=== PATIENT | male | born 1985 | race African-American/Black ===

== ENCOUNTER 2017-06-18 09:33 | Emergency (ER) | payer SELFPAY ==
[~2017-06-18] VITALS: Ht 188 cm; Wt 172.0 kg
[2017-06-18 10:14] VITALS: BP 119/78
[2017-06-18] MEDS ORDERED: LIDOCAINE HCL 1% 20ML VIAL (Pyxis) INJ INFIL ONE (11:00)
[2017-06-18] MEDS ORDERED: CEFTRIAXONE SODIUM 250 MG/VIAL IM ONE (11:00)
[2017-06-18] MEDS ORDERED: AZITHROMYCIN 500 MG TABLET PO ONE (11:00)
== END 2017-06-18 11:16 | disposition home or self-care (01) ==
LOC: ER 09:33
DX: N48.9 Disorder of penis, unspecified (principal); E66.9 Obesity, unspecified; F17.200 Nicotine dependence, unspecified, uncomplicated
CPT/HCPCS: 96372; 99283; J0696; J3490

== ENCOUNTER 2017-08-06 15:13 | Emergency (ER) | payer SELFPAY ==
[~2017-08-06] VITALS: Ht 188 cm; Wt 150.0 kg
[2017-08-06 15:45] VITALS: BP 145/85
[2017-08-07] MEDS ORDERED: SUCCINYLCHOLINE CHLORIDE 200MG/10ML VIAL IV ONE (13:19)
[2017-08-07] MEDS ORDERED: LIDOCAINE HCL/PF 1% 10 MG/ML 5ML VIAL ONE (13:20)
[2017-08-07] MEDS ORDERED: MIDAZOLAM HCL 2 MG/2 ML VIAL ONE (13:20)
[2017-08-07] MEDS ORDERED: PROPOFOL 200MG/20ML VIAL IV ONE ×2 (13:20→13:22)
[2017-08-07] MEDS ORDERED: FENTANYL CITRATE/PF 50MCG/ML 2ML VIAL ONE (13:20)
[2017-08-07] MEDS ORDERED: ROCURONIUM BROMIDE 10MG/ML VIAL 5ML IV ONE (13:22)
== END 2017-08-07 01:31 | disposition left against medical advice (07) ==
LOC: ER 16:22
DX: Z53.21 Procedure and treatment not carried out due to patient leaving prior to being seen by health care provider (principal)
CPT/HCPCS: J0330; J2250; J2704; J3010; J3490

== ENCOUNTER 2017-08-07 08:12 | Observation (INO) | payer SELFPAY ==
[~2017-08-07] VITALS: Ht 188 cm; Wt 150.6 kg
[2017-08-07] MEDS ORDERED: ONDANSETRON HCL 4MG/2ML VIAL IV STA (09:36)
[2017-08-07] MEDS ORDERED: MORPHINE SULFATE 4 MG/ML CPJ (NOT FOR IM USE) IV STA (09:36)
[2017-08-07 10:04] LABS: BASOPHILS % 0.3 % (0.0-2.0); EOSINOPHILS % 0.7 % (0.0-5.0); HEMATOCRIT. 42.8 % (42.0-52.0); HEMOGLOBIN. 14.7 g/dL (14.0-18.0); LYMPHOCYTES % 29.1 % (20.0-50.0); MEAN CORPUSCULAR HEMOGLOBIN 30.9 pg (28.0-32.0); MEAN CORPUSCULAR VOLUME 90.1 fL (80.0-94.0); MEAN PLATELET VOLUME 8.9 fl (7.4-10.4); MONOCYTES % 8.7 % (2.0-8.0); NEUTROPHILS % 61.2 % (40.0-76.0); PLATELET 184 x1000/uL (130-400); RED BLOOD CELL COUNT 4.75 mill/uL (4.7-6.1)
[2017-08-07 10:12] LABS: CHLORIDE 108 mEq/L (98-107)
[2017-08-07] MEDS ORDERED: PIPERACILLIN/TAZ 3.375G PREMIX 50 ML IV SCH ×2 (11:57→19:45)
[2017-08-07] MEDS ORDERED: MORPHINE SULFATE 4 MG/ML CPJ (NOT FOR IM USE) IV ONE (12:00)
[2017-08-07] MEDS ORDERED: ONDANSETRON HCL 4MG/2ML VIAL IV ONE (12:00)
[2017-08-07] MEDS ORDERED: PIPERACILLIN/TAZOBACTAM 3.375GM/50ML PREMIX IV ONE ×2 (12:00→19:45)
[2017-08-07] MEDS ORDERED: SODIUM CHLORIDE 0.9% 1,000 ML IV ONE (12:00)
[2017-08-07 13:05] LABS: CLARITY URINE CLEAR (CLEAR); COLOR URINE YELLOW (YELLOW); KETONES URINE NEGATIVE (NEGATIVE); LEUKOCYTE ESTERASE URINE NEGATIVE (NEGATIVE); NITRITE URINE NEGATIVE (NEGATIVE); OCCULT BLOOD URINE NEGATIVE (NEGATIVE); PROTEIN URINE NEGATIVE (NEGATIVE)
[2017-08-07] MEDS ORDERED: BUPIVACAINE HCL 0.5% (5MG/ML) 50ML ONE (13:27)
[2017-08-07 13:34] LABS: *AMPHETAMINES SCREEN URINE NEGATIVE (NEGATIVE); *BARBITURATES SCREEN URINE NEGATIVE (NEGATIVE); *BENZODIAZEPINES SCREEN URINE NEGATIVE (NEGATIVE); *COCAINE SCREEN URINE NEGATIVE (NEGATIVE); CANNABINOID URINE SCREEN PRESUMTIVE POSITIVE (NEGATIVE); METHADONE URINE SCREEN NEGATIVE (NEGATIVE); OPIATES URINE SCREEN PRESUMTIVE POSITIVE (NEGATIVE); PHENCYCLIDINE URINE SCREEN NEGATIVE (NEGATIVE)
[2017-08-07] MEDS ORDERED: IOHEXOL-300 100 ML BOTTLE ONE (14:00)
[2017-08-07] MEDS ORDERED: DIATR MEGLU/DIATRIZOATE SOLN 30ML ONE (14:01)
[2017-08-07] MEDS ORDERED: DIATR MEGLU/DIATRIZOATE SOLN 120ML ONE (14:01)
[2017-08-07] MEDS ORDERED: SKIN ADHESIVE 0.7 GM EA TOP ONE (18:12)
[2017-08-07] MEDS ORDERED: BUPIVACAINE HCL/PF 0.5% (5MG/ML) 10ML ONE (18:13)
[2017-08-07] MEDS ORDERED: ROCURONIUM BROMIDE 10MG/ML VIAL 5ML IV ONE (18:38)
[2017-08-07] MEDS ORDERED: LIDOCAINE HCL/PF 1% 10 MG/ML 5ML VIAL ONE (18:38)
[2017-08-07] MEDS ORDERED: PROPOFOL 200MG/20ML VIAL IV ONE (18:38)
[2017-08-07] MEDS ORDERED: SUCCINYLCHOLINE CHLORIDE 200MG/10ML VIAL IV ONE (18:42)
[2017-08-07] MEDS ORDERED: FENTANYL CITRATE/PF 50MCG/ML 2ML VIAL ONE (18:46)
[2017-08-07] MEDS ORDERED: MIDAZOLAM HCL 2 MG/2 ML VIAL ONE (18:47)
[2017-08-07] MEDS ORDERED: ESMOLOL HCL 10MG/ML 10ML VIAL IV ONE (18:51)
[2017-08-07] MEDS ORDERED: HYDROCODONE/ACETAMINOPHEN 5/325MG TABLET PO PRN ×2 (19:00)
[2017-08-07] MEDS ORDERED: MORPHINE SULFATE 4 MG/ML CPJ (NOT FOR IM USE) IV PRN ×2 (19:00→21:23)
[2017-08-07] MEDS ORDERED: ONDANSETRON HCL 4MG/2ML VIAL IV PRN (19:00)
[2017-08-07] MEDS ORDERED: DEXAMETHASONE 4MG/ML 1ML VIAL ONE (19:30)
[2017-08-07] MEDS ORDERED: GLYCOPYRROLATE 0.2 MG/ML 2ML VIAL ONE ×2 (19:45→20:31)
[2017-08-07] MEDS ORDERED: NEOSTIGMINE METHYLSULFATE 1MG/ML 10 ML VIAL ONE (19:45)
[2017-08-07] MEDS ORDERED: MORPHINE SULFATE 2 MG/ML CPJ (NOT FOR IM USE) IV PRN (20:00)
[2017-08-07] MEDS ORDERED: DEXT 5%/0.45% NACL KCL 20MEQ/L 1,000 ML IV SCH (21:00)
[2017-08-07] MEDS ORDERED: SODIUM CHLORIDE 0.9% INJ 3ML FLUSH IVF SCH (22:00)
[2017-08-07 22:23] VITALS: BP 118/77
[2017-08-07] MEDS: MORPHINE SULFATE 4 MG/ML CPJ (NOT FOR IM USE) IV PRN (23:13)
[2017-08-07] MEDS ORDERED: DEXT 5%/0.45% NACL 1000ML 1,000 ML IV SCH (23:15)
[2017-08-08] VITALS: BP 122/63
[2017-08-08 04:00] VITALS: BP 116/79
[2017-08-08] MEDS: MORPHINE SULFATE 4 MG/ML CPJ (NOT FOR IM USE) IV PRN (06:09)
[2017-08-08 08:00] VITALS: BP 118/74
[2017-08-08 12:18] VITALS: BP 118/74
== END 2017-08-08 12:45 | disposition home or self-care (01) ==
LOC: ER 08:46 → 6EST 11:57 → INTOOBSV 11:57 → ENRESERV 15:21 → ER 18:21 → CANBEDREQ 19:16
PROVIDERS: ADMIT Internal Medicine; ATTEND Internal Medicine
DX: K35.80 Unspecified acute appendicitis (principal); E66.01 Morbid (severe) obesity due to excess calories; F17.200 Nicotine dependence, unspecified, uncomplicated; Z83.3 Family history of diabetes mellitus
CPT/HCPCS: 36415; 44970; 74176; 74177; 80053; 80305; 81003; 83690; 85025; 87040; 88304; 93005; 96365; 96375; 96376; 99285; G0168; G0378; J0330; J1100; J2250; J2270; J2405; J2543; J2710; J3010; J3490; J7030; Q9967; J2704; Q9963

== ENCOUNTER 2017-08-18 08:49 | Emergency (ER) | payer SELFPAY ==
[~2017-08-18] VITALS: Ht 188 cm; Wt 173.0 kg
[2017-08-18] MEDS ORDERED: MORPHINE SULFATE 4 MG/ML CPJ (NOT FOR IM USE) IV STA (10:15)
[2017-08-18] MEDS ORDERED: ONDANSETRON HCL 4MG/2ML VIAL IV STA (10:15)
[2017-08-18 10:51] LABS: BASOPHILS % 0.6 % (0.0-2.0); EOSINOPHILS % 1.8 % (0.0-5.0); HEMATOCRIT. 41.5 % (42.0-52.0); MEAN CORPUSCULAR HEMOGLOBIN 30.5 pg (28.0-32.0); MEAN CORPUSCULAR VOLUME 90.2 fL (80.0-94.0); MEAN PLATELET VOLUME 8.5 fl (7.4-10.4); MONOCYTES % 6.4 % (2.0-8.0); NEUTROPHILS % 60.2 % (40.0-76.0); PLATELET 216 x1000/uL (130-400); RED BLOOD CELL COUNT 4.61 mill/uL (4.7-6.1); RED CELL DISTRIBUTION WIDTH 12.9 % (11.6-14.6)
[2017-08-18 10:54] LABS: CHLORIDE 107 mEq/L (98-107)
[2017-08-18 10:55] LABS: PROTHROMBIN TIME 10.5 sec (9.4-11.6)
[2017-08-18 11:10] LABS: CLARITY URINE CLEAR (CLEAR); COLOR URINE YELLOW (YELLOW); KETONES URINE NEGATIVE (NEGATIVE); LEUKOCYTE ESTERASE URINE NEGATIVE (NEGATIVE); NITRITE URINE NEGATIVE (NEGATIVE); OCCULT BLOOD URINE NEGATIVE (NEGATIVE); PH URINE 5.5 (4.5-8.0); PROTEIN URINE NEGATIVE (NEGATIVE); SPECIFIC GRAVITY URINE 1.013 (1.005-1.030); UROBILINOGEN URINE 0.2 E.U./dL (0.2-1.0)
[2017-08-18 13:04] VITALS: BP 124/74
== END 2017-08-18 13:04 | disposition home or self-care (01) ==
LOC: ER 09:13
DX: R10.9 Unspecified abdominal pain (principal); Z90.49 Acquired absence of other specified parts of digestive tract; F12.10 Cannabis abuse, uncomplicated
CPT/HCPCS: 36415; 80053; 81003; 83690; 85025; 85610; 96374; 96375; 99284; J2270; J2405